=== PATIENT | female | born 1955 | race Caucasian/White ===

== ENCOUNTER 2018-01-09 09:46 | Emergency (ER) | payer OTHER ==
[~2018-01-09] VITALS: Ht 167.6 cm; Wt 108.5 kg
[~2018-01-09 09:46] MED LIST: CELEXA; ENOX100S5 SQ; ENOX120S5 SQ; LISI5TAB7 PO; MORP30TA81 PO; OXYC10TA47 PO; ROPI4TAB3 PO; TIZA4CAP2 PO; XANAX
[2018-01-09 10:04] VITALS: BP 130/68
[2018-01-09] MEDS ORDERED: LIDOCAINE-MPF 2% ,5ML ONE (10:22)
[2018-01-09] MEDS ORDERED: DIPH,PERTUSS(ACELL),TET VAC/PF 0.5 ML IM-VACC ONE ×2 (10:22→10:30)
[2018-01-09] MEDS ORDERED: LIDOCAINE-MPF 2% ,5ML SQ ONE (10:30)
[2018-01-09] MEDS ORDERED: BACITRACIN ZINC OINT 500U/GM, 0.9 GM ONE (11:12)
== END 2018-01-09 11:25 | disposition home or self-care (01) ==
LOC: ED 11:15
DX: S61.012A Laceration without foreign body of left thumb without damage to nail, initial encounter (principal); W25.XXXA Contact with sharp glass, initial encounter; Y93.89 Activity, other specified; Y99.8 Other external cause status; Y92.009 Unspecified place in unspecified non-institutional (private) residence as the place of occurrence of the external cause
CPT/HCPCS: 12041; 90471; 90715; 99284; J3490